=== PATIENT | female | born 1960 | race Caucasian/White ===

== ENCOUNTER 2016-10-10 20:24 | Emergency (ER) | payer BC, SELFPAY ==
[2016-10-10] MEDS ORDERED: Cephalexin 500 MG CAP ONE (20:58)
== END 2016-10-10 21:10 | disposition home or self-care (01) ==
LOC: MADERS 20:24
DX: S61.012A Laceration without foreign body of left thumb without damage to nail, initial encounter (principal); Z87.891 Personal history of nicotine dependence; W45.0XXA Nail entering through skin, initial encounter
CPT/HCPCS: 12001